=== PATIENT | male | born 1950 | race Native Hawaiian/Other Pacific Islander ===

== ENCOUNTER 2021-05-22 16:16 | Outpatient (CLI) | payer OTHER, MEDICARE | END 2021-05-22 19:04 | disposition home or self-care (01) | LOC: RAD 16:16 | PROVIDERS: ATTEND Nurse Practitioner Family | DX: M25.571 Pain in right ankle and joints of right foot (principal); M25.511 Pain in right shoulder ==

== ENCOUNTER 2021-06-11 13:25 | Outpatient (CLI) | payer OTHER, MEDICARE | END 2021-06-11 19:13 | disposition home or self-care (01) | LOC: CT 13:25 | PROVIDERS: ATTEND Nurse Practitioner Family | DX: M13.811 Other specified arthritis, right shoulder (principal) ==